=== PATIENT | female | born 1975 | race African-American/Black ===

== ENCOUNTER 2017-11-21 12:43 | Emergency (ER) | payer OTHER ==
[~2017-11-21] VITALS: Ht 152.4 cm; Wt 64.0 kg
[2017-11-21] MEDS ORDERED: KETOROLAC 30MG/ML VIAL IV STA (13:13)
[2017-11-21] MEDS ORDERED: ONDANSETRON HCL 4MG/2ML INJ IV STA (13:13)
[2017-11-21] MEDS ORDERED: SODIUM CHLORIDE 0.9% 1,000 ML IV ONE (13:13)
[2017-11-21 14:04] LABS: CHLORIDE 108 mEq/L (98-107)
[2017-11-21 14:06] LABS: PROTHROMBIN TIME 9.8 sec (9.1-11.1)
[2017-11-21 14:11] LABS: HCG SCREEN NEGATIVE
[2017-11-21 14:21] LABS: CLARITY URINE TURBID (CLEAR); COLOR URINE ORANGE (YELLOW); KETONES URINE NEGATIVE (NEGATIVE); LEUKOCYTE ESTERASE URINE 1+ (NEGATIVE); NITRITE URINE NEGATIVE (NEGATIVE); OCCULT BLOOD URINE 3+ (NEGATIVE); PROTEIN URINE 1+ (NEGATIVE); SPECIFIC GRAVITY URINE 1.024 (1.005-1.030); UROBILINOGEN URINE 0.2 E.U./dL (0.2-1.0)
[2017-11-21 14:22] LABS: HEMATOCRIT. 34.6 % (36.0-48.0); HEMOGLOBIN. 11.4 g/dL (12.0-16.0); MEAN PLATELET VOLUME 9.3 fl (7.4-10.4); PLATELET 203 x1000/uL (130-400)
[2017-11-21 14:56] LABS: ATYPICAL LYMPHOCYTES 1; PLATELET ESTIMATE NORMAL
[2017-11-21 15:25] LABS: *AMPHETAMINES SCREEN URINE NEGATIVE (NEGATIVE); *BARBITURATES SCREEN URINE NEGATIVE (NEGATIVE); *BENZODIAZEPINES SCREEN URINE NEGATIVE (NEGATIVE); *COCAINE SCREEN URINE NEGATIVE (NEGATIVE)
[2017-11-21 15:26] LABS: CANNABINOID URINE SCREEN NEGATIVE (NEGATIVE); METHADONE URINE SCREEN NEGATIVE (NEGATIVE); OPIATES URINE SCREEN NEGATIVE (NEGATIVE); PHENCYCLIDINE URINE SCREEN NEGATIVE (NEGATIVE)
[2017-11-21 18:00] VITALS: BP 132/86
== END 2017-11-21 18:14 | disposition home or self-care (01) ==
LOC: ER 12:43
DX: N39.0 Urinary tract infection, site not specified (principal); D25.9 Leiomyoma of uterus, unspecified; Z89.511 Acquired absence of right leg below knee
CPT/HCPCS: 36415; 74176; 80053; 80305; 81003; 83690; 84703; 85025; 85610; 87086; 96374; 96375; 99285; J1885; J7030